=== PATIENT | male | born 2000 | race Caucasian/White ===

== ENCOUNTER 2022-01-25 17:03 | Emergency (ER) | payer OTHER, SELFPAY ==
[2022-01-25 17:20] VITALS: BP 135/92; PULSE 89; RESP 15; TEMP 36.7; O2SAT 100; BMI 19.6
--- NOTE | 2022-01-25 18:12 | CT_ITS ---
PROCEDURE INFORMATION: Exam: CT Head Without Contrast Exam date and time: 01/25/2022 6:27 PM Age: 22 years old Clinical indication: Dizziness; Additional info: Dizzy TECHNIQUE: Imaging protocol: Computed tomography of the head without contrast. Radiation optimization: All CT scans at this facility use at least one of these dose optimization techniques: automated exposure control; mA and/or kV adjustment per patient size (includes targeted exams where dose is matched to clinical indication); or iterative reconstruction. COMPARISON: No relevant prior studies available. FINDINGS: Brain: Normal. No hemorrhage. Unremarkable white matter. No mass effect. Cerebral ventricles: No ventriculomegaly. Paranasal sinuses: Visualized sinuses are unremarkable. No fluid levels. Mastoid air cells: Visualized mastoid air cells are well aerated. Bones/joints: Unremarkable. No acute fracture. Soft tissues: Unremarkable. IMPRESSION: No acute intracranial abnormality.
--- NOTE | 2022-01-25 18:13 | [facility].EDGENADL ---
ED Disposition Clinical Impression: Nausea, Dizziness Disposition: Home, Self-Care Condition on Discharge: Good Additional Instructions: At this time was felt you are safe to be discharged from the emergency department. If new or worsening symptoms please do not hesitate to return for continued evaluation. Please follow-up with your family doctor within 2 to 3 days. Referrals: Ahsan Keating MD [Primary Care Provider] - - Critical Care Critical Care Time: No Attestation: On 01/25/22, the high probability of a clinically significant, sudden or life threatening deterioration of the following system(s) required my full and direct attention, intervention and personal management. The time I documented below is in addition to time spent performing reported procedures but includes the following listed in this critical care notation. Medical Decision Making - Serge Inquiry Pt receiving controlled substance: No Vital Signs: 01/25/22 17:20 Temperature 98.0 F Temperature Source Oral Pulse Rate [Right Radial] 89 Respiratory Rate 15 Blood Pressure [Right Arm] 135/92 H Blood Pressure Mean [Right Arm] 106 Blood Pressure Source [Right Arm] Automatic Cuff Blood Pressure Position [Right Arm] Sitting 02 Sat by Pulse Oximetry 100 Oxygen Delivery Method Room Air - Lab Data Lab Results 01/25/22 18:02: WBC 6.5, RBC 5.25, Hgb 16.4, Hct 49.9, MCV 95.0 H, MCH 31.2, MCHC 32.8, RDW 13.2, Plt Count 226, MPV 9.6, Neut % (Auto) 63.4, Lymph % (Auto) 26.8, Alfalfa % (Auto) 6.8, Eos % (Auto) 1.5, Baso % (Auto) 1.4, Neut # (Auto) 4.1, Lymph # (Auto) 1.8, Alfalfa # (Auto) 0.5, Eos # (Auto) 0.1, Baso # (Auto) 0.1 01/25/22 18:02: Sodium 140, Potassium 4.1, Chloride 104, Carbon Dioxide 29, Anion Gap 11.1, BUN 8 L, Creatinine 0.70, Estimated Creat Clear 155, Estimated GFR 142, Est GFR ( Amer) 172, Glucose 99, Calcium 9.8, Total Bilirubin 1.0, AST 26, ALT 21, Alkaline Phosphatase 103, Total Protein 7.6, Albumin 4.8, Globulin 2.8, Albumin/Globulin Ratio 1.7 01/25/22 18:02: Magnesium 2.0 Result diagrams: 01/25/22 18:02 01/25/22 18:02 Orders (Tests/Meds): ED MEDICATIONS Generic Name Dose Route Start Last Admin Trade Name Nathaly PRN Reason Stop Dose Admin Sodium Chloride 10 ml 01/25/22 17:29 Sodium Chloride 0.9% 10ml Flush Syringe IV 02/24/22 17:28 NEEDED PRN Maintain IV Site Discontinued Medications Generic Name Dose Route Start Last Admin Trade Name Freq PRN Reason Stop Dose Admin Sodium Chloride 1,000 mls @ 999 mls/hr 01/25/22 17:29 01/25/22 18:01 Sod Chlor 0.9% 1000ml Bag IV 01/25/22 18:29 999 mls/hr .Q1H1M ONE Administration Ondansetron HCl 4 mg 01/25/22 18:12 01/25/22 18:17 Ondansetron 4mg Odt SL 01/25/22 18:13 Not Given ONCE ONE Ondansetron HCl 4 mg 01/25/22 18:17 01/25/22 18:18 Ondansetron 4mg/2ml Vial IV 01/25/22 18:18 4 mg ONCE ONE Administration ORDERS Category Date Time Status EKG Request [ECG Request by /Robyn] Stat Y 01/25/22 18:13 Ordered - ECG Data Tracing #1 Independently interpreted by me, rate is 72, rhythm is sinus arrhythmia, narrow QRS, no delta wave, no significant ST elevation in anatomical contiguous leads. QTC is 391. Medical Decision Narrative: In summary patient is a 22-year-old male past medical history described below presents emergency department for evaluation of nausea, subacute lightheadedness. Patient is hemodynamically stable nontoxic-appearing upon arrival, afebrile with a nonfocal neurologic exam. Differential includes hypovolemia, dysrhythmia, among others. Work-up will be conducted with hematologic labs, noncontrasted CT scan of the head. Initial interventions include crystalloid bolus and Zofran. Work-up was reviewed by me, hematologic labs are nonactionable, noncontrasted CT scan head shows no acute intracranial abnormality. Upon repeat assessment patient continued to have a nonfocal neurologic exam. Tolerating
[2022-01-25 18:16] LABS: Basophils # 0.1 K/mm3 (0-0.2); Basophils % 1.4 % (0.1-2.0); Eosinophils # 0.1 K/mm3 (0.0-0.4); Eosinophils % 1.5 % (0.1-12.0); Hematocrit 49.9 % (42.0-52.0); Hemoglobin 16.4 g/dL (14.1-18.0); Lymphocytes # 1.8 K/mm3 (0.7-4.5); Lymphocytes % 26.8 % (10-50); Mean Corpuscular HGB Conc 32.8 g/dL (31.8-35.4); Mean Corpuscular Hemoglobin 31.2 pg (27.0-31.2); Mean Platelet Volume 9.6 fl (7.4-10.4); Monocytes # 0.5 K/mm3 (0.1-1.0); Monocytes % 6.8 % (1.7-9.3); Neutrophils # 4.1 K/mm3 (1.8-7.8); Neutrophils % 63.4 % (37.0-80.0); Platelet Count 226 K/mm3 (142-424); Red Blood Count 5.25 M/mm3 (4.60-6.20); Red Cell Distribution Width 13.2 % (11.5-17.5); White Blood Count 6.5 K/mm3 (4.8-10.8)
[2022-01-25 18:20] LABS: Alanine Aminotransferase 21 U/L (12-78); Albumin Level 4.8 g/dl (3.5-5.0); Albumin/Globulin Ratio 1.7 (1.1-1.8); Alkaline Phosphatase 103 U/L (38-126); Anion Gap 11.1 mEq/L (5-15); Aspartate Amino Transferase 26 U/L (17-59); Blood Urea Nitrogen 8 mg/dl (9-20); Calcium 9.8 mg/dl (8.4-10.2); Carbon Dioxide 29 mmol/L (22.0-30.0); Chloride 104 mmol/L (98-107); Creatinine Clearance Estimated 155 mL/min (50-200); Estimated Glomerular Filt Rate 142 ml/min (>60); GFR (African American) 172 ML/MIN (>60); Globulin 2.8 g/dL (1.3-3.2); Glucose 99 mg/dl (74-100); Potassium 4.1 mmoL/L (3.5-5.1); Sodium 140 mmol/L (136-145); Total Protein,Serum 7.6 g/dl (6.3-8.2)
--- NOTE | 2022-01-25 18:29 | ECG_ITS ---
APPROVED REPORT Exam: Resting ECG HR:72 bpm ECG Measurements Heart Rate 72 AXES SD 119 P 46 QRSd 90 QRS 89 QT 366 T 76 QTc 391 Conclusion SINUS RHYTHM WITH MARKED SINUS ARRHYTHMIA WITH SHORT SD INTERVAL BORDERLINE ECG UNCONFIRMED REPORT Electronically signed by : Trace Talley MD 01/26/2022 07:56:39
--- NOTE | 2022-01-25 18:33 | PC.NURSE ---
PT GONE TO CT
[2022-01-25 20:02] VITALS: BP 130/77; PULSE 89; RESP 16; TEMP 37.1; O2SAT 98
== END 2022-01-25 20:07 | disposition home or self-care (01) ==
PROVIDERS: Emergency Provider Emergency Medicine; PCP Emergency Medicine
DX: R11.0 Nausea (principal); R42 Dizziness and giddiness
CPT/HCPCS: 70450; 80053; 83735; 85025; 93005; 96365; 96375; 99284; J2405